=== PATIENT | male | born 1950 | race Caucasian/White ===

== ENCOUNTER → 2016-09-22 14:48 | Outpatient (CLI) | payer MEDICARE, BC ==
[2016-01-24 13:23] VITALS: BMI 34.0
[~2016-09-22 14:48] MED LIST: AMBIEN10 MG PO; ASPIRIN325 MG PO; BENICAR5 MG PO; CARBIDOPA-LEVO1 EAC2 PO; CLONAZEPAM2 MG/TAB; CLONAZEPAM2 MG/TAB PO; CO Q-1030 MG; CO Q-10400 MG PO; COUMADIN7.5 MG PO; ELIQUIS2.5 MG PO; FEXOFENADINE H180 MG PO; HYDROCHLOROTH12.5 M1 PO; HYDROCODONE-APA1 TAB PO; IMDUR30 MG PO; LEXAPRO10 MG PO; LEXAPRO20 MG PO; LIPITOR20 MG PO; LODINE400 MG PO; METOPROLOL TART50 MG PO; MULTIPLE VITAMI1 TA1; NIFEDIPINE ER60 MG PO; NORCO 10/325 TA1 TA1 PO; NORVASC10 MG PO; OMEGA-3100 MG PO; PERCOCET 10/3251 TA1 PO; PLAVIX75 MG PO; RESTORIL15 MG PO; TOPROL XL50 MG PO; ULTRAM50 MG PO; VITAMIN E200 UNI1; ZANTAC150 MG PO; ZESTORETIC 20-1 EACH PO; ZESTRIL20 MG PO
== END | disposition home or self-care (01) ==
LOC: D.MRI 09-20 10:30
DX: M54.12 Radiculopathy, cervical region (principal); M54.16 Radiculopathy, lumbar region

== ENCOUNTER → 2016-09-26 15:48 | Outpatient (CLI) | payer MEDICARE, BC ==
[2016-01-24 13:23] VITALS: BMI 34.0
== END | disposition home or self-care (01) ==
LOC: D.MRI 09-22 15:30
DX: M54.12 Radiculopathy, cervical region (principal); M54.16 Radiculopathy, lumbar region